=== PATIENT | male | born 1995 | race Caucasian/White ===

== ENCOUNTER 2021-01-14 10:46 | Emergency (ER) | payer BC, SELFPAY ==
[2021-01-14 10:53] VITALS: BP 178/77; PULSE 84; RESP 18; TEMP 37.6; O2SAT 99
--- NOTE | 2021-01-14 10:59 | ED.NAVMDI ---
HPI - Nausea/Vomiting/Diarrhea General Chief complaint: Upper Respiratory Infection Stated complaint: sick for about a week Time Seen by Provider: 01/14/21 10:59 Source: patient and RN notes reviewed History of Present Illness HPI Narrative: Patient is a 25-year-old male who presents the urgent care with complaints of being sick for a week . Patient states his symptoms started last Friday or with nausea, vomiting and diarrhea. 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 Patient states his Covid test last was negative. States that considering he skipped his training and has been off work for more than 3 days he is required to be seen at a facility . Patient states that the nausea, vomiting and diarrhea have improved over the last couple days. States that he has had one loose stool in the last 24 hours and has not vomited for 2 days. Patient states he does still have some intermittent nausea. Denies of any abdominal pain. States that he has had some low back pain. Denies of any urinary symptoms. Patient states that he started to have congestion yesterday and has been taking cold medications. Patient denies of any fever. No other acute complaints. No acute distress noted. Patient aware of the plan of care. Some parts of this dictation were generated by voice recognition software and may contain typographical and/or grammatical inaccuracies. Related Data Home Medications Medication Instructions Recorded Confirmed amitriptyline 50 mg PO DAILY 01/14/21 01/14/21 Allergies Allergy/AdvReac Type Severity Reaction Status Date / Time No Known Allergies Allergy Unverified 06/02/17 18:59 Review of Systems Review of Systems: Narrative: CONSTITUTIONAL: Denies fever, chills, or sweats. EYES: Denies visual changes, redness, or discharge. ENT: Reports of sinus congestion CARDIOVASCULAR: Denies chest pain, palpitations, or edema. RESPIRATORY: Denies cough or dyspnea. GASTROINTESTINAL: Reports of nausea, vomiting and diarrhea which has recently improved GENITOURINARY: Denies dysuria or hematuria. SKIN: Denies rash or itching. MUSCULOSKELETAL: Reports of mild low back pain NEUROLOGIC: Denies headache, numbness, or weakness. All other systems reviewed are negative, except as documented in HPI. [facility] Social History Social History Smoking status: Never smoker Alcohol intake: never Gender identity (if verbalized by the patient): Male Comments At the time of my signature, I reviewed and agree with the nursing past medical, surgical, social, and family history. There is no relevant family history pertinent to the patient complaint. Exam Narrative: Exam Narrative: GENERAL: This is a well-nourished, well-developed patient, in no apparent distress. HEAD: normocephalic, atraumatic. EYES: PERRL. Sclera clear/white. Vision is grossly intact. EARS: External ears normal, auditory canals clear and without drainage, TMs normal without perforation. Hearing grossly intact. NOSE: External nose normal with no obvious nasal discharge, nares without redness, no rhinorrhea. THROAT: Mucous membranes moist, posterior pharynx clear. NECK: Neck supple, non-tender without lymphadenopathy, masses or thyromegaly. CARDIOVASCULAR: Regular rate and rhythm without murmurs, gallops, or rubs. RESPIRATORY: Clear to auscultation. Breath sounds equal bilaterally. No wheezes, rales, or rhonchi. GASTROINTESTINAL: Abdomen soft, mild diffuse tenderness, nondistended. Bowel sounds are active. No hepato-splenomegaly, or palpable masses. No guarding. SKIN: warm, intact with no suspicious lesions or rash, good texture and turgor. NEURO: awake, alert, and oriented to person, place and time. There were no obvious focal neurologic abnormalities. EXTREMITIES: No clubbing, cyanosis, or edema. BACK: Bilateral CVA tenderness Course Vital Signs Vital signs: Vital Signs Temperature 99.6 F 01/14/21 10:53 Pulse
== END 2021-01-14 11:25 | disposition home or self-care (01) ==
PROVIDERS: Emergency Provider Nurse Practitioner Family
DX: R11.0 Nausea (principal); R19.7 Diarrhea, unspecified
CPT/HCPCS: 81003; 99212; G0463